=== PATIENT | male | born 1960 | race Caucasian/White ===

== ENCOUNTER 2019-10-14 16:41 | Observation (INO) | payer BC, OTHER ==
[2019-10-14] MEDS ORDERED: Sodium Chloride 0.9% 10 ML Syringe FLUSH PRN (16:42)
[2019-10-14] MEDS ORDERED: Sodium Chloride 0.9% 2.5 ML Syringe FLUSH PRN (16:42)
--- NOTE | 2019-10-14 17:03 | EDM.PDOC ---
ED HPI GENERAL MEDICAL PROBLEM - General Chief Complaint: Cardiovascular Problem Stated Complaint: CHEST PAIN Time Seen by Provider: 10/14/19 16:42 Source of Information: Reports: Patient History Limitations: Reports: No Limitations - History of Present Illness INITIAL COMMENTS - FREE TEXT/NARRATIVE: 59-year-old male with history of CAD, CABG, HLD, HTN, GERD, hiatal hernia pres ents with substernal chest pain. Symptoms started gradually 3 days ago, described as constant, sharp, tearing, radiates from the substernal region to the periumbilical region. Pain has gotten worse from 1/10 three days ago to a 4/10 today. He took 1 sublingual nitroglycerin with no relief. Associated with shortness of breath, generalized malaise. Denies F/Cough, N/V/sweats. He has not been compliant with his medications. He drove up here 3 days ago from [place], [place] on a [address] He smokes 1 PPD for almost 15 years. He does note about a 25 pound weight loss over the last 6 months. ROS: A 10-point review of systems, other than pertinent positives and negatives as stated per HPI, is otherwise negative PHYSICAL EXAM General: AOx4, GCS = 15, No distress HEENT: dry mucous membrane Neck: supple, no meningismus, no Kernig or Brudzinski Cardiac: S1S2 RRR Respiratory: CTAB, no crackles or rales, no wheezing Abdomen: Soft, nontender, no rebound or guarding, nondistended, no pulsatile mass. Back: nontender Musculoskeletal: NVI distally, no deformity Neuro: No focal deficits, CN 2 - 12 WNL. sternal Pain Score (Numeric/FACES): 5 - Related Data Allergies Allergy/AdvReac Type Severity Reaction Status Date / Time codeine Allergy Rash Verified 12/03/13 10:46 Home Meds: Home Meds Ticagrelor [Brilinta] 1 tab PO BID 12/03/13 [History] atorvaSTATin [Lipitor] 2 tab PO DAILY 12/03/13 [History] carvediloL [Coreg] 1 tab PO BID 12/03/13 [History] rOPINIRole [Requip] 8 mg PO DAILY 12/03/13 [History] traMADol [Ultram] 1 tab PO Q4H PRN 12/03/13 [History] Esomeprazole [NexIUM] 1 tab PO BID 06/18/14 [History] Varenicline Tartrate [Chantix] 1 mg PO DAILY 10/14/19 [History] ED ROS GENERAL - Review of Systems Review Of Systems: See Below (see dictation) ED EXAM, GENERAL - Physical Exam Exam: See Below (see dictation) EKG INTERPRETATION EKG Interpretation Comments: 91 Bpm, NSR, normal QRS interval, no STEMI. EKG and rhythm strip interpreted by me at 1651 Course - Vital Signs Last Recorded V/S: Last Vital Signs Temp 97 F 10/14/19 17:07 Pulse 94 10/14/19 17:07 Resp 16 10/14/19 17:07 BP 139/79 10/14/19 17:07 Pulse Ox 97 10/14/19 17:07 - Orders/Labs/Meds Orders: Active Orders 24 hr Category Date Time Status Cardiac Monitoring [RC] . DIRECTED Care 10/14/19 16:42 Active EKG Documentation Completion [RC] STAT Care 10/14/19 16:43 Active Pulse Oximetry [RC] ASDIRECTED Care 10/14/19 16:42 Active CORONAVIRUS COVID-19 PCR PHL Stat Lab 10/14/19 19:02 Ordered Sodium Chloride 0.9% [Saline Flush] Med 10/14/19 16:42 Active 10 ml FLUSH ASDIRECTED PRN Sodium Chloride 0.9% [Saline Flush] Med 10/14/19 16:42 Active 2.5 ml FLUSH ASDIRECTED PRN Saline Lock Insert [OM.PC] Stat Oth 10/14/19 16:42 Ordered Medication Orders Sodium Chloride (Saline Flush) 10 ml FLUSH ASDIRECTED PRN PRN Reason: Keep Vein Open Last Admin: 10/14/19 18:23 Dose: 10 ml Documented by: SILVINA Sodium Chloride (Saline Flush) 2.5 ml FLUSH ASDIRECTED PRN PRN Reason: Keep Vein Open Last Admin: 10/14/19 18:23 Dose: 2.5 ml Documented by: [email or web address] Labs: Laboratory Tests 10/14/19 10/14/19 10/14/19 Range/Units 16:55 16:55 16:55 WBC 13.94 H (4.0-11.0) K/uL RBC 4.94 (4.50-5.90) M/uL Hgb 14.1 (13.0-17.0) g/dL Hct 41.5 (38.0-50.0) % MCV 84.0 (80.0-98.0) fL MCH 28.5 (27.0-32.0) pg MCHC 34.0 (31.0-37.0) g/dL RDW Std Deviation 43.5 (28.0-62.0) fl RDW Coeff of Bennie 14 (11.0-15.0) % Plt Count 226 (150-400) K/uL MPV 9.60 (7.40-12.00) fL Neut % (Auto) 73.4 (48.0-80.0) % Lymph % (Auto) 12.6 L (16.0-40.0) % [place] % (Auto) 9.8 (0.0-15.0) % Eos % (Auto) 3.9 (0.0-7.0) % Baso % (Auto) 0.3 (0.0-1.5) % Neut # (Auto) 10.2 H (1.4-5.7) K/uL Lymph # (Auto) 1.8 (0.6-2.4) K/uL [place] # (Auto) 1.4 H (0.0-0.8) K/uL Eos # (Auto) 0.6 (0.0-0.7) K/uL Baso # (Auto) 0.0 (0.0-0.1) K/uL Nucleated RBC % 0.0 /100WBC Nucleated RBCs # 0 K/uL INR 1.09 Sodium 134 L (136-148) mmol/L Potassium 4.0 (3.5-5.1) mmol/L Chloride 98 (98-107) mmol/L Carbon Dioxide 26.0 (21.0-32.0) mmol/L BUN 9 (7.0-18.0) mg/dL Creatinine 1.1 (0.8-1.3) mg/dL Est Cr Clr Drug Dosing 69.95 mL/min Estimated GFR (MDRD) > 60.0 ml/min Glucose 104 (74-106) mg/dL Calcium 9.4 (8.5-10.1) mg/dL Total Bilirubin 0.6 (0.2-1.0) mg/dL AST 13 L (15-37) IU/L ALT 13 L (14-63) IU/L Alkaline Phosphatase 126 H (46-116) U/L Troponin I <0.050 (0.000-0.056) ng/mL Total Protein 8.1 (6.4-8.2) g/dL Albumin 3.8 (3.4-5.0) g/dL Globulin 4.3 H (2.6-4.0) g/dL Albumin/Globulin Ratio 0.9 (0.9-1.6) Lipase (73-393) U/L SARS-CoV-2 RNA (RT-PCR) (NEGATIVE) 10/14/19 10/14/19 Range/Units 16:55 17:34 WBC (4.0-11.0) K/uL RBC (4.50-5.90) M/uL Hgb (13.0-17.0) g/dL Hct (38.0-50.0) % MCV (80.0-98.0) fL MCH (27.0-32.0) pg MCHC (31.0-37.0) g/dL RDW Std Deviation (28.0-62.0) fl RDW Coeff of Bennie (11.0-15.0) % Plt Count (150-400) K/uL MPV (7.40-12.00) fL Neut % (Auto) (48.0-80.0) % Lymph % (Auto) (16.0-40.0) % [place] % (Auto) (0.0-15.0) % Eos % (Auto) (0.0-7.0) % Baso % (Auto) (0.0-1.5) % Neut # (Auto) (1.4-5.7) K/uL Lymph # (Auto) (0.6-2.4) K/uL [place] # (Auto) (0.0-0.8) K/uL Eos # (Auto) (0.0-0.7) K/uL Baso # (Auto) (0.0-0.1) K/uL Nucleated RBC % /100WBC Nucleated RBCs # K/uL INR Sodium (136-148) mmol/L Potassium (3.5-5.1) mmol/L Chloride (98-107) mmol/L Carbon Dioxide (21.0-32.0) mmol/L BUN (7.0-18.0) mg/dL Creatinine (0.8-1.3) mg/dL Est Cr Clr Drug Dosing mL/min Estimated GFR (MDRD) ml/min Glucose (74-106) mg/dL Calcium (8.5-10.1) mg/dL Total Bilirubin (0.2-1.0) mg/dL AST (15-37) IU/L ALT (14-63) IU/L Alkaline Phosphatase (46-116) U/L Troponin I (0.000-0.056) ng/mL Total Protein (6.4-8.2) g/dL Albumin (3.4-5.0) g/dL Globulin (2.6-4.0) g/dL Albumin/Globulin Ratio (0.9-1.6) Lipase 48 L (73-393) U/L SARS-CoV-2 RNA (RT-PCR) NEGATIVE (NEGATIVE) Meds: Medications Generic Name Dose Route Start Last Admin Trade Name Freq PRN Reason Stop Dose Admin Sodium Chloride 10 ml 10/14/19 16:42 10/14/19 18:23 Saline Flush FLUSH 10 ml ASDIRECTED PRN Administration Keep Vein Open Sodium Chloride 2.5 ml 10/14/19 16:42 10/14/19 18:23 Saline Flush FLUSH 2.5 ml ASDIRECTED PRN Administration Keep Vein Open Discontinued Medications Generic Name Dose Route Start Last Admin Trade Name Freq PRN Reason Stop Dose Admin Al Hydroxide/Mg Hydroxide 15 0 ml 10/14/19 17:47 10/14/19 18:22 ml/ Lidocaine HCl 5 ml PO 10/14/19 17:48 1 each ONETIME ONE Administration Pantoprazole Sodium 40 mg/ 20 mls @ 420 mls/hr 10/14/19 17:47 10/14/19 18:21 Sodium Chloride IVPUSH 10/14/19 17:49 420 mls/hr ONETIME ONE Administration Iopamidol 100 ml 10/14/19 18:08 10/14/19 18:09 Isovue Multipack-370 (76%) IVPUSH 10/14/19 18:09 100 ml ONETIME STA Administration - Re-Assessments/Exams Free Text/Narrative Re-Assessment/Exam: 10/14/19 18:[address] Mejia, who agrees to assume care at this point. The hospitalist's documentation supersedes all other documentation on this patient with regard to any conflicts or discrepancies from this point forward. Any emergency conditions have been treated to the ability of the ED prior to admission. Departure - Departure Time of Disposition: 18:39 Disposition: Refer to Observation Condition: Good Clinical Impression: Chest pain Referrals: PCP,None [Primary Care Provider] - Forms: ED Department Discharge Sepsis Event Note (ED) - Focused Exam Vital Signs: Vital Signs Temp Pulse Resp BP Pulse Ox 10/14/19 17:07 97 F 94 16 139/79 97 - My Orders Last 24 Hours: My Active Orders 10/14/19 16:42 Cardiac Monitoring [RC] . DIRECTED Pulse Oximetry [RC] ASDIRECTED Sodium Chloride 0.9% [Saline Flush] 10 ml FLUSH ASDIRECTED PRN Sodium Chloride 0.9% [Saline Flush] 2.5 ml FLUSH ASDIRECTED PRN Saline Lock Insert [OM.PC] Stat 10/14/19 16:43 EKG Documentation Completion [RC] STAT 10/14/19 19:02 CORONAVIRUS COVID-19 PCR PHL Stat - Assessment/Plan Last 24 Hours: My Active Orders 10/14/19 16:42 Cardiac Monitoring [RC] . DIRECTED Pulse Oximetry [RC] ASDIRECTED Sodium Chloride 0.9% [Saline Flush] 10 ml FLUSH ASDIRECTED PRN Sodium Chloride 0.9% [Saline Flush] 2.5 ml FLUSH ASDIRECTED PRN Saline Lock Insert [OM.PC] Stat 10/14/19 16:43 EKG Documentation Completion [RC] STAT 10/14/19 19:02 CORONAVIRUS COVID-19 PCR PHL Stat
[2019-10-14 17:36] LABS: BLOOD UREA NITROGEN,BUN 9 mg/dL (7.0-18.0); CHLORIDE,CL 98 mmol/L (98-107); GLUCOSE RANDOM 104 mg/dL (74-106); SODIUM,NA 134 mmol/L (136-148)
[2019-10-14] MEDS ORDERED: Alum Hydrox/Mag Hydrox/Simeth 15 ML, Lidocaine 2% 5 ML PO ONE ×2 (17:47)
[2019-10-14] MEDS ORDERED: Pantoprazole 40 MG in Sodium Chloride 0.9% 20 ML IVPUSH ONE (17:47)
[2019-10-14] MEDS ORDERED: Iopamidol 755 MG/ML 500 ML Multipack Bottle IVPUSH STA (18:08)
--- NOTE | 2019-10-14 18:10 | CT ---
CT chest, abdomen and pelvis Technique: Multiple axial sections were obtained from above the lung apices inferiorly through the lung bases. Intravenous contrast was utilized. Study performed as a CT angiogram protocol. Comparison: No prior chest or abdominal imaging. Findings: Thoracic aorta as well as abdominal aorta shows no aneurysm or dissection. Atherosclerotic change is noted. Slightly enlarged lymph nodes are seen within the left hilum and mediastinum. Lung mass is noted within the left upper chest showing irregular margins and measuring 4.0 cm in size. Lungs otherwise are clear. No axillary adenopathy is seen. Liver shows a small low density lesion anteriorly within the left lobe measuring 7 mm. This is too small to characterize as a cyst or solid nodule. No additional abnormalities are seen within the liver. Spleen appears within normal limits. Adrenal glands show no nodule. Pancreas shows no abnormality. Surgical clips are seen from prior cholecystectomy. Kidneys show symmetric contrast enhancement without hydronephrosis or mass. Superior mesenteric arteries and celiac axis appears patent. Both renal arteries are patent. Inferior mesenteric artery is patent. No retroperitoneal adenopathy or mesenteric abnormalities are seen. No pelvic mass or adenopathy is seen. No free fluid or inflammatory change is seen. Diverticuli are seen within the descending and sigmoid regions without diverticulitis. Appendix not visualized with certainty. Bone window settings were reviewed which shows mild degenerative change within the spine. No acute osseous finding is appreciated. Impression: 1. No evidence of thoracic or abdominal aortic aneurysm or dissection. Scattered atherosclerotic change is seen. 2. Mediastinal and left hilar adenopathy with left upper lung mass. Lung mass measures about 4.0 cm and findings are most likely due to lung cancer. 3. Small 7 mm abnormality within the anterior liver which is too small to characterize as cyst or solid lesion. 4. Other findings which are believed to be incidental as noted above. Diagnostic code #9 This report was dictated in MDT
--- NOTE | 2019-10-14 18:12 | CT ---
This study was dictated as part of the chest angiogram report
--- NOTE | 2019-10-14 18:13 | CT ---
This study was dictated as part of previous chest angiogram report.
[2019-10-14] MEDS ORDERED: Albuterol/Ipratropium 3.0-0.5 MG/3 ML Neb Soln NEB PRN (20:45)
[2019-10-14] MEDS ORDERED: atorvaSTATin 40 MG Tab PO SCH (21:00)
[2019-10-14] MEDS ORDERED: Acetaminophen 500 MG Tab PO PRN (21:26)
[2019-10-14] MEDS ORDERED: Morphine 2 MG/ML Syringe IVPUSH PRN (21:27)
[2019-10-14] MEDS: Aspirin 81 MG Tab.Chew PO SCH (21:33)
[2019-10-14] MEDS ORDERED: traMADol 50 MG Tab PO PRN (22:34)
--- NOTE | 2019-10-14 22:37 | PCM.HP.2 ---
H&P History of Present Illness - General Date of Service: 10/14/19 Admit Problem/Dx: Admission Diagnosis/Problem Admission Diagnosis/Problem Chest pain - History of Present Illness Initial Comments - Free Text/Narative: 59-year-old male with history of CAD, CABG, HLD, HTN, GERD, hiatal hernia presents with substernal chest pain and upper back pain. Symptoms started gradually 3 days ago, described as constant, sharp, tearing, radiates from the substernal region to the periumbilical region. Pain has gotten worse from 1/10 three days ago to a 4/10 today. He took 1 sublingual nitroglycerin with no relief. He has not been compliant with his medications. He drove up here 3 days ago from [place], [place] on a [address] He smokes 1 PPD for almost 15 years, has been trying to quit. He does note about a 25 pound weight loss over the last 6 months. In the ER EKG showed NSR, normal QRS interval, no STEMI, troponin was negative CT angiogram of chest and abdomen was obtained due to concern of dissection and PE, imaging was neagtive for dissection and PE but did show a irregular nodule in left lung with associated adenopathy, and 7mm lesion in liver. Given his extensive cardiac history, Patient was admitted fo ACS rule out and also to establish care in [place] for his follow up. Denied associated with shortness of breath, generalized malaise. Denies Fever/Cough, N/V/D, Diaphoresis. sternal Pain Score (Numeric/FACES): 7 - Related Data Allergies/Adverse Reactions: Allergies Allergy/AdvReac Type Severity Reaction Status Date / Time codeine Allergy Rash Verified 10/14/19 21:11 Home Medications: Home Meds Ticagrelor [Brilinta] 1 tab PO BID 12/03/13 [History] atorvaSTATin [Lipitor] 2 tab PO BID 12/03/13 [History] carvediloL [Coreg] 1 tab PO BID 12/03/13 [History] rOPINIRole [Requip] 8 mg PO DAILY 12/03/13 [History] traMADol [Ultram] 1 tab PO Q4H PRN 12/03/13 [History] Esomeprazole [NexIUM] 1 tab PO BID 06/18/14 [History] Varenicline Tartrate [Chantix] 1 mg PO DAILY 10/14/19 [History] Alum Hydrox/Mag Hydrox/Simeth [Mag-Al Plus] 30 ml PO Q6H PRN #15 cup 10/15/19 [Rx] Aspirin 81 mg PO DAILY tab.chew 10/15/19 [Rx] Past Medical History Cardiovascular History: Reports: [place], [place] - Infectious Disease History Infectious Disease History: Reports: Chicken Pox Social & Family History - Family History Family Medical History: Noncontributory - Tobacco Use Smoking Status *Q: Current Every Day Smoker Years of Tobacco use: 14 Packs/Tins Daily: 10 Used Tobacco, but Quit: No Second Hand Smoke Exposure: Yes - Caffeine Use Caffeine Use: Reports: Coffee, Soda - Recreational Drug Use Recreational Drug Use: No H&P Review of Systems - Review of Systems: Review Of Systems: See Below General: Reports: Weakness, Fatigue, Weight Loss. Denies: Fever, Chills, Malaise HEENT: Denies: Dysphasia, Ear Pain Pulmonary: Reports: Cough. Denies: Wheezing, Pleuritic Chest Pain, Sputum Cardiovascular: Denies: Palpitations, Dyspnea on Exertion, Orthopnea, Lightheadedness Gastrointestinal: Reports: Decreased Appetite. Denies: Abdominal Pain, Bloody Stool, Constipation, Diarrhea, Difficulty Swallowing, Distension Genitourinary: Denies: Burning, Pain, Urgency, Incontinence Musculoskeletal: Reports: Shoulder Pain, Back Pain Skin: Denies: Jaundice, Pallor, Diaphoresis, Dryness, Bruising, Pruritis Psychiatric: Denies: Mood Lability, Anxiety, Agitation, Cravings Neurological: Denies: Numbness, Paresthesia Exam - Exam Exam: See Below - Vital Signs Vital Signs: Last Vital Signs Temp 36.9 C 10/14/19 20:33 Pulse 89 10/14/19 20:33 Resp 18 10/14/19 20:33 BP 130/62 10/14/19 20:33 Pulse Ox 96 10/14/19 20:33 Weight: 89.3 kg - Exam General: Alert, Oriented Neck: Supple, Trachea Midline Lungs: Clear to Auscultation, Normal Respiratory Effort Cardiovascular: Regular Rate, Regular Rhythm, Normal S1, Normal S2 Back Exam: Normal Inspection, Full Range of Motion Extremities: Normal Inspection, Normal Range of Motion Skin: Warm Neurological: Cranial Nerves Intact Neuro Extensive - Mental Status: Alert, Oriented x3, Normal Mood/Affect - Patient Data Lab Results Last 24 hrs: Laboratory Results - last 24 hr 10/14/19 10/14/19 10/14/19 Range/Units 16:55 16:55 16:55 WBC 13.94 H (4.0-11.0) K/uL RBC 4.94 (4.50-5.90) M/uL Hgb 14.1 (13.0-17.0) g/dL Hct 41.5 (38.0-50.0) % MCV 84.0 (80.0-98.0) fL MCH 28.5 (27.0-32.0) pg MCHC 34.0 (31.0-37.0) g/dL RDW Std Deviation 43.5 (28.0-62.0) fl RDW Coeff of Bennie 14 (11.0-15.0) % Plt Count 226 (150-400) K/uL MPV 9.60 (7.40-12.00) fL Neut % (Auto) 73.4 (48.0-80.0) % Lymph % (Auto) 12.6 L (16.0-40.0) % [place] % (Auto) 9.8 (0.0-15.0) % Eos % (Auto) 3.9 (0.0-7.0) % Baso % (Auto) 0.3 (0.0-1.5) % Neut # (Auto) 10.2 H (1.4-5.7) K/uL Lymph # (Auto) 1.8 (0.6-2.4) K/uL [place] # (Auto) 1.4 H (0.0-0.8) K/uL Eos # (Auto) 0.6 (0.0-0.7) K/uL Baso # (Auto) 0.0 (0.0-0.1) K/uL Nucleated RBC % 0.0 /100WBC Nucleated RBCs # 0 K/uL INR 1.09 Sodium 134 L (136-148) mmol/L Potassium 4.0 (3.5-5.1) mmol/L Chloride 98 (98-107) mmol/L Carbon Dioxide 26.0 (21.0-32.0) mmol/L BUN 9 (7.0-18.0) mg/dL Creatinine 1.1 (0.8-1.3) mg/dL Est Cr Clr Drug Dosing 69.95 mL/min Estimated GFR (MDRD) > 60.0 ml/min Glucose 104 (74-106) mg/dL Calcium 9.4 (8.5-10.1) mg/dL Total Bilirubin 0.6 (0.2-1.0) mg/dL AST 13 L (15-37) IU/L ALT 13 L (14-63) IU/L Alkaline Phosphatase 126 H (46-116) U/L Troponin I <0.050 (0.000-0.056) ng/mL Total Protein 8.1 (6.4-8.2) g/dL Albumin 3.8 (3.4-5.0) g/dL Globulin 4.3 H (2.6-4.0) g/dL Albumin/Globulin Ratio 0.9 (0.9-1.6) Lipase (73-393) U/L SARS-CoV-2 RNA (RT-PCR) (NEGATIVE) 10/14/19 10/14/19 10/14/19 Range/Units 16:55 17:34 20:55 WBC (4.0-11.0) K/uL RBC (4.50-5.90) M/uL Hgb (13.0-17.0) g/dL Hct (38.0-50.0) % MCV (80.0-98.0) fL MCH (27.0-32.0) pg MCHC (31.0-37.0) g/dL RDW Std Deviation (28.0-62.0) fl RDW Coeff of Bennie (11.0-15.0) % Plt Count (150-400) K/uL MPV (7.40-12.00) fL Neut % (Auto) (48.0-80.0) % Lymph % (Auto) (16.0-40.0) % [place] % (Auto) (0.0-15.0) % Eos % (Auto) (0.0-7.0) % Baso % (Auto) (0.0-1.5) % Neut # (Auto) (1.4-5.7) K/uL Lymph # (Auto) (0.6-2.4) K/uL [place] # (Auto) (0.0-0.8) K/uL Eos # (Auto) (0.0-0.7) K/uL Baso # (Auto) (0.0-0.1) K/uL Nucleated RBC % /100WBC Nucleated RBCs # K/uL INR Sodium (136-148) mmol/L Potassium (3.5-5.1) mmol/L Chloride (98-107) mmol/L Carbon Dioxide (21.0-32.0) mmol/L BUN (7.0-18.0) mg/dL Creatinine (0.8-1.3) mg/dL Est Cr Clr Drug Dosing mL/min Estimated GFR (MDRD) ml/min Glucose (74-106) mg/dL Calcium (8.5-10.1) mg/dL Total Bilirubin (0.2-1.0) mg/dL AST (15-37) IU/L ALT (14-63) IU/L Alkaline Phosphatase (46-116) U/L Troponin I <0.050 (0.000-0.056) ng/mL Total Protein (6.4-8.2) g/dL Albumin (3.4-5.0) g/dL Globulin (2.6-4.0) g/dL Albumin/Globulin Ratio (0.9-1.6) Lipase 48 L (73-393) U/L SARS-CoV-2 RNA (RT-PCR) NEGATIVE (NEGATIVE) Result Diagrams: 10/15/19 05:35 10/15/19 05:35 Sepsis Event Note - Evaluation Sepsis Screening Result: No Definite Risk - Focused Exam Vital Signs: Vital Signs Temp Pulse Resp BP Pulse Ox 10/14/19 20:33 36.9 C 89 18 130/62 96 10/14/19 20:25 37.3 C 93 18 130/78 99 10/14/19 19:30 37.2 C 100 18 143/79 H 97 10/14/19 17:07 36.1 C 94 16 139/79 97 Date Exam was Performed: 10/15/19 Time Exam was Performed: 13:06 - Problem List (1) Lesion of left lung SNOMED Code(s): 047038343 ICD Code: R91.1 - SOLITARY PULMONARY NODULE Status: Acute (2) Chest pain SNOMED Code(s): 41634277 ICD Code: R07.9 - CHEST PAIN, UNSPECIFIED Status: Acute (3) Coronary arteriosclerosis, CAD SNOMED Code(s): 80867803 ICD Code: I25.10 - ATHSCL HEART DISEASE OF [place] CORONARY ARTERY W/O ANG PCTRS Status: Acute Onset Date: 12/03/13 Problem List Initiated/Reviewed/Updated: Yes Orders Last 24hrs: Active Orders 24 hr Category Date Time Status Admission Status [Patient Status] [ADT] Stat ADT 10/14/19 19:16 Active Ambulate [RC] ASDIRECTED Care 10/14/19 20:37 Active Antiembolic Devices [RC] PER UNIT ROUTINE Care 10/14/19 20:45 Active EKG Documentation Completion [RC] STAT Care 10/14/19 16:43 Active Oxygen Therapy Adult [Oxygen Therapy] [RC] ASDIRECTED Care 10/14/19 20:38 Active Pulse Oximetry [RC] ASDIRECTED Care 10/14/19 16:42 Active Pulse Oximetry [RC] PRN Care 10/14/19 20:38 Active RT Aerosol Therapy [RC] ASDIRECTED Care 10/14/19 20:45 Active Telemetry Monitoring [Cardiac Monitoring] [RC] . Care 10/14/19 19:20 Active DIRECTED Vital Signs [RC] Q4H Care 10/14/19 20:00 Active Heart Healthy Diet [DIET] Diet 10/15/19 Breakfast Active BASIC METABOLIC PANEL,BMP [CHEM] AM Lab 10/15/19 05:11 Ordered CBC WITH AUTO DIFF [HEME] AM Lab 10/15/19 05:11 Ordered MAGNESIUM [CHEM] AM Lab 10/15/19 05:11 Ordered PHOSPHORUS [CHEM] AM Lab 10/15/19 05:11 Ordered TROPONIN I [CHEM] Q3H Lab 10/14/19 23:38 Ordered Acetaminophen [Tylenol Extra Strength] Med 10/14/19 21:26 Active 500 mg PO Q6H PRN Albuterol/Ipratropium [DuoNeb 3.0-0.5 MG/3 ML] Med 10/14/19 20:45 Active 3 ml NEB Q4HRRT PRN Aspirin Med 10/14/19 20:45 Active 81 mg PO DAILY Esomeprazole [NexIUM] Med 10/15/19 09:00 Ordered 1 tab PO BID Morphine Sulfate [Morphine] Med 10/14/19 21:27 Active 1 mg IVPUSH Q6H PRN Sodium Chloride 0.9% [Saline Flush] Med 10/14/19 16:42 Active 10 ml FLUSH ASDIRECTED PRN Sodium Chloride 0.9% [Saline Flush] Med 10/14/19 16:42 Active 2.5 ml FLUSH ASDIRECTED PRN Ticagrelor Med 10/15/19 09:00 Ordered 1 tab PO BID atorvaSTATin [Lipitor] Med 10/14/19 21:00 Active 40 mg PO BEDTIME atorvaSTATin [Lipitor] Med 10/15/19 09:00 Ordered 80 mg PO BID carvediloL [Coreg] Med 10/15/19 09:00 Ordered 3.125 mg PO BID rOPINIRole [Requip] Med 10/15/19 09:00 Ordered 8 mg PO DAILY traMADol [Ultram] Med 10/14/19 22:34 Ordered 50 mg PO Q4H PRN SCD [Sequential Compression Device] [OM.PC] Routine Oth 10/14/19 20:45 Ordered Saline Lock Insert [OM.PC] Stat Oth 10/14/19 16:42 Ordered Medication Orders Acetaminophen (Tylenol Extra Strength) 500 mg PO Q6H PRN PRN Reason: Pain Albuterol/Ipratropium (Duoneb 3.0-0.5 Mg/3 Ml) 3 ml NEB Q4HRRT PRN PRN Reason: Shortness of Breath Aspirin (Aspirin) 81 mg PO DAILY [facility] Last Admin: 10/14/19 21:33 Dose: 81 mg Documented by: AYE Atorvastatin Calcium (Lipitor) 40 mg PO BEDTIME [facility] Last Admin: 10/14/19 21:34 Dose: 40 mg Documented by: AYE Atorvastatin Calcium (Lipitor) 80 mg PO BID [facility] Carvedilol (Coreg) 3.125 mg PO BID [facility] Morphine Sulfate (Morphine) 1 mg IVPUSH Q6H PRN PRN Reason: Pain (severe 7-10) Last Admin: 10/14/19 22:07 Dose: 1 mg Documented by: AYE Non-Formulary Medication (Esomeprazole [Nexium]) 1 tab PO BID [facility] Non-Formulary Medication (Ropinirole [Requip]) 8 mg PO DAILY [facility] Non-Formulary Medication (Ticagrelor) 1 tab PO BID [facility] Sodium Chloride (Saline Flush) 10 ml FLUSH ASDIRECTED PRN PRN Reason: Keep Vein Open Last Admin: 10/14/19 18:23 Dose: 10 ml Documented by: SILVINA Sodium Chloride (Saline Flush) 2.5 ml FLUSH ASDIRECTED PRN PRN Reason: Keep Vein Open Last Admin: 10/14/19 18:23 Dose: 2.5 ml Documented by: [id number] Tramadol HCl (Ultram) 50 mg PO Q4H PRN PRN Reason: Pain Assessment/Plan Comment:: 59 y/o M admitted for chest discomfort and incidental finding of possible lung Ca Admit to observation tele Trend 2 more sets of troponin Resume home meds including Plavix, ASA, statin Monitor and replete electrolytes as needed SCD for DVT ppx Cardiac diet Will make arrangements for outpatient fu at [facility] (patients request)
[2019-10-14] MEDS ORDERED: Aluminum Hydroxide/Magnesium Hydroxide/Simethicone Susp 30 ML Cup PO PRN (23:16)
[2019-10-15] MEDS ORDERED: rOPINIRole 1 MG Tab PO SCH (01:48)
[2019-10-15 06:28] LABS: BLOOD UREA NITROGEN,BUN 11 mg/dL (7.0-18.0); CARBON DIOXIDE,CO2 25.9 mmol/L (21.0-32.0); CHLORIDE,CL 97 mmol/L (98-107); GLUCOSE RANDOM 121 mg/dL (74-106); POTASSIUM,K 3.9 mmol/L (3.5-5.1); SODIUM,NA 132 mmol/L (136-148)
[2019-10-15] MEDS ORDERED: atorvaSTATin 40 MG Tab PO SCH ×2 (09:00→21:00)
[2019-10-15] MEDS ORDERED: Omeprazole 20 MG Cap.CR PO SCH (09:00)
[2019-10-15] MEDS ORDERED: Carvedilol 3.125 MG Tab PO SCH (09:00)
--- NOTE | 2019-10-15 09:20 | PCM.DCSUM1 ---
Discharge Summary - Hospital Course Free Text/Narrative:: 59-year-old male with history of CAD, CABG, HLD, HTN, GERD, hiatal hernia presents with substernal chest pain and upper back pain. Symptoms started gradually 3 days ago, described as constant, sharp, tearing, radiates from the substernal region to the periumbilical region. Pain has gotten worse from 1/10 three days ago to a 4/10 today. He took 1 sublingual nitroglycerin with no relief. He has not been compliant with his medications. He drove up here 3 days ago from [place], [place] on [address] He smokes 1 PPD for almost 15 years, has been trying to quit. He does note about a 25 pound weight loss over the last 6 months. In the ER EKG showed NSR, normal QRS interval, no STEMI, troponin was negative CT angiogram of chest and abdomen was obtained due to concern of dissection and PE, imaging was negative for dissection and PE but did show a irregular nodule in left lung with associated adenopathy, and 7mm lesion in liver. Patient was admitted for ACS rule out and also to establish care in [place] for his follow up. Denied associated with shortness of breath, generalized malaise. Denies Fever/Cough, N/V/D, Diaphoresis. During hospitalization, troponin were trended, which were negative 3 times, tele was unremarkable, ACS was ruled out. Epigastric pain resolved with Maalox, For left lung mass biopsy, patient was refereed to IR in [facility] upon patients request, and recommended to fu with pcp and oncology on outpatient basis. - Discharge Data Discharge Date: 10/15/19 Discharge Disposition: Home, Self-Care 01 Condition: Stable - Referral to Home Health Primary Care Physician: PCP None - Discharge Diagnosis/Problem(s) (1) Lesion of left lung SNOMED Code(s): 461936898 ICD Code: R91.1 - SOLITARY PULMONARY NODULE Status: Acute (2) Chest pain SNOMED Code(s): 31878758 ICD Code: R07.9 - CHEST PAIN, UNSPECIFIED Status: Acute (3) Coronary arteriosclerosis, CAD SNOMED Code(s): 26764447 ICD Code: I25.10 - ATHSCL HEART DISEASE OF [place] CORONARY ARTERY W/O ANG PCTRS Status: Acute Onset Date: 12/03/13 - Discharge Plan Prescriptions/Med Rec: Alum Hydrox/Mag Hydrox/Simeth [Mag-Al Plus] 30 ml PO Q6H PRN #15 cup PRN Reason: Heartburn Home Medications: Home Meds Ticagrelor [Brilinta] 1 tab PO BID 12/03/13 [History] atorvaSTATin [Lipitor] 2 tab PO BID 12/03/13 [History] carvediloL [Coreg] 1 tab PO BID 12/03/13 [History] rOPINIRole [Requip] 8 mg PO DAILY 12/03/13 [History] traMADol [Ultram] 1 tab PO Q4H PRN 12/03/13 [History] Esomeprazole [NexIUM] 1 tab PO BID 06/18/14 [History] Varenicline Tartrate [Chantix] 1 mg PO DAILY 10/14/19 [History] Alum Hydrox/Mag Hydrox/Simeth [Mag-Al Plus] 30 ml PO Q6H PRN #15 cup 10/15/19 [Rx] Aspirin 81 mg PO DAILY tab.chew 10/15/19 [Rx] Patient Handouts: Nonspecific Chest Pain, Adult, [place], Aluminum Hydroxide; Magnesium Hydroxide oral suspension Referrals: Nish Echevarria DO [Consulting Physician] - 11/18/19 8:30 am (Arrive 30 minutes early with a photo ID, insurance card, photo ID, list of all medications currently on, and mask. ) - Discharge Summary/Plan Comment DC Time >30 min.: Yes - Patient Data Vitals - Most Recent: Last Vital Signs Temp 36.4 C 10/15/19 08:00 Pulse 82 10/15/19 08:00 Resp 16 10/15/19 08:00 BP 121/74 10/15/19 08:00 Pulse Ox 96 10/15/19 08:00 Weight - Most Recent: 89.3 kg I&O - Last 24 hours: Intake & Output 10/14/19 10/15/19 10/15/19 22:59 06:59 14:59 Intake Total 700 Output Total 300 Balance 400 Lab Results - Last 24 hrs: Laboratory Results - last 24 hr 10/14/19 10/14/19 10/14/19 Range/Units 16:55 16:55 16:55 WBC 13.94 H (4.0-11.0) K/uL RBC 4.94 (4.50-5.90) M/uL Hgb 14.1 (13.0-17.0) g/dL Hct 41.5 (38.0-50.0) % MCV 84.0 (80.0-98.0) fL MCH 28.5 (27.0-32.0) pg MCHC 34.0 (31.0-37.0) g/dL RDW Std Deviation 43.5 (28.0-62.0) fl RDW Coeff of Bennie 14 (11.0-15.0) % Plt Count 226 (150-400) K/uL MPV 9.60 (7.40-12.00) fL Neut % (Auto) 73.4 (48.0-80.0) % Lymph % (Auto) 12.6 L (16.0-40.0) % Hughes % (Auto) 9.8 (0.0-15.0) % Eos % (Auto) 3.9 (0.0-7.0) % Baso % (Auto) 0.3 (0.0-1.5) % Neut # (Auto) 10.2 H (1.4-5.7) K/uL Lymph # (Auto) 1.8 (0.6-2.4) K/uL Hughes # (Auto) 1.4 H (0.0-0.8) K/uL Eos # (Auto) 0.6 (0.0-0.7) K/uL Baso # (Auto) 0.0 (0.0-0.1) K/uL Nucleated RBC % 0.0 /100WBC Nucleated RBCs # 0 K/uL INR 1.09 Sodium 134 L (136-148) mmol/L Potassium 4.0 (3.5-5.1) mmol/L Chloride 98 (98-107) mmol/L Carbon Dioxide 26.0 (21.0-32.0) mmol/L BUN 9 (7.0-18.0) mg/dL Creatinine 1.1 (0.8-1.3) mg/dL Est Cr Clr Drug Dosing 69.95 mL/min Estimated GFR (MDRD) > 60.0 ml/min Glucose 104 (74-106) mg/dL Calcium 9.4 (8.5-10.1) mg/dL Phosphorus (2.6-4.7) mg/dL Magnesium (1.8-2.4) mg/dL Total Bilirubin 0.6 (0.2-1.0) mg/dL AST 13 L (15-37) IU/L ALT 13 L (14-63) IU/L Alkaline Phosphatase 126 H (46-116) U/L Troponin I <0.050 (0.000-0.056) ng/mL Total Protein 8.1 (6.4-8.2) g/dL Albumin 3.8 (3.4-5.0) g/dL Globulin 4.3 H (2.6-4.0) g/dL Albumin/Globulin Ratio 0.9 (0.9-1.6) Lipase (73-393) U/L SARS-CoV-2 RNA (RT-PCR) (NEGATIVE) 10/14/19 10/14/19 10/14/19 Range/Units 16:55 17:34 20:55 WBC (4.0-11.0) K/uL RBC (4.50-5.90) M/uL Hgb (13.0-17.0) g/dL Hct (38.0-50.0) % MCV (80.0-98.0) fL MCH (27.0-32.0) pg MCHC (31.0-37.0) g/dL RDW Std Deviation (28.0-62.0) fl RDW Coeff of Bennie (11.0-15.0) % Plt Count (150-400) K/uL MPV (7.40-12.00) fL Neut % (Auto) (48.0-80.0) % Lymph % (Auto) (16.0-40.0) % Hughes % (Auto) (0.0-15.0) % Eos % (Auto) (0.0-7.0) % Baso % (Auto) (0.0-1.5) % Neut # (Auto) (1.4-5.7) K/uL Lymph # (Auto) (0.6-2.4) K/uL Hughes # (Auto) (0.0-0.8) K/uL Eos # (Auto) (0.0-0.7) K/uL Baso # (Auto) (0.0-0.1) K/uL Nucleated RBC % /100WBC Nucleated RBCs # K/uL INR Sodium (136-148) mmol/L Potassium (3.5-5.1) mmol/L Chloride (98-107) mmol/L Carbon Dioxide (21.0-32.0) mmol/L BUN (7.0-18.0) mg/dL Creatinine (0.8-1.3) mg/dL Est Cr Clr Drug Dosing mL/min Estimated GFR (MDRD) ml/min Glucose (74-106) mg/dL Calcium (8.5-10.1) mg/dL Phosphorus (2.6-4.7) mg/dL Magnesium (1.8-2.4) mg/dL Total Bilirubin (0.2-1.0) mg/dL AST (15-37) IU/L ALT (14-63) IU/L Alkaline Phosphatase (46-116) U/L Troponin I <0.050 (0.000-0.056) ng/mL Total Protein (6.4-8.2) g/dL Albumin (3.4-5.0) g/dL Globulin (2.6-4.0) g/dL Albumin/Globulin Ratio (0.9-1.6) Lipase 48 L (73-393) U/L SARS-CoV-2 RNA (RT-PCR) NEGATIVE (NEGATIVE) 10/14/19 10/15/19 10/15/19 Range/Units 23:35 05:35 05:35 WBC 11.19 H (4.0-11.0) K/uL RBC 4.80 (4.50-5.90) M/uL Hgb 13.6 (13.0-17.0) g/dL Hct 40.2 (38.0-50.0) % MCV 83.8 (80.0-98.0) fL MCH 28.3 (27.0-32.0) pg MCHC 33.8 (31.0-37.0) g/dL RDW Std Deviation 43.2 (28.0-62.0) fl RDW Coeff of Bennie 14 (11.0-15.0) % Plt Count 211 (150-400) K/uL MPV 9.70 (7.40-12.00) fL Neut % (Auto) 72.0 (48.0-80.0) % Lymph % (Auto) 11.7 L (16.0-40.0) % Hughes % (Auto) 11.2 (0.0-15.0) % Eos % (Auto) 4.7 (0.0-7.0) % Baso % (Auto) 0.4 (0.0-1.5) % Neut # (Auto) 8.1 H (1.4-5.7) K/uL Lymph # (Auto) 1.3 (0.6-2.4) K/uL Hughes # (Auto) 1.3 H (0.0-0.8) K/uL Eos # (Auto) 0.5 (0.0-0.7) K/uL Baso # (Auto) 0.0 (0.0-0.1) K/uL Nucleated RBC % 0.0 /100WBC Nucleated RBCs # 0 K/uL INR Sodium 132 L (136-148) mmol/L Potassium 3.9 (3.5-5.1) mmol/L Chloride 97 L (98-107) mmol/L Carbon Dioxide 25.9 (21.0-32.0) mmol/L BUN 11 (7.0-18.0) mg/dL Creatinine 1.0 (0.8-1.3) mg/dL Est Cr Clr Drug Dosing 76.95 mL/min Estimated GFR (MDRD) > 60.0 ml/min Glucose 121 H (74-106) mg/dL Calcium 9.1 (8.5-10.1) mg/dL Phosphorus 3.5 (2.6-4.7) mg/dL Magnesium 2.0 (1.8-2.4) mg/dL Total Bilirubin (0.2-1.0) mg/dL AST (15-37) IU/L ALT (14-63) IU/L Alkaline Phosphatase (46-116) U/L Troponin I < 0.050 (0.000-0.056) ng/mL Total Protein (6.4-8.2) g/dL Albumin (3.4-5.0) g/dL Globulin (2.6-4.0) g/dL Albumin/Globulin Ratio (0.9-1.6) Lipase (73-393) U/L SARS-CoV-2 RNA (RT-PCR) (NEGATIVE) Med Orders - Current: Current Medications Acetaminophen (Tylenol Extra Strength) 500 mg PO Q6H PRN PRN Reason: Pain Last Admin: 10/15/19 00:34 Dose: 500 mg Documented by: Al Hydroxide/Mg Hydroxide (Mag-Al Plus) 30 ml PO Q4H PRN PRN Reason: Heartburn Last Admin: 10/15/19 02:15 Dose: 30 ml Documented by: Albuterol/Ipratropium (Duoneb 3.0-0.5 Mg/3 Ml) 3 ml NEB Q4HRRT PRN PRN Reason: Shortness of Breath Aspirin (Aspirin) 81 mg PO DAILY [facility] Last Admin: 10/14/19 21:33 Dose: 81 mg Documented by: Atorvastatin Calcium (Lipitor) 80 mg PO BEDTIME MINDY Carvedilol (Coreg) 3.125 mg PO BID [facility] Morphine Sulfate (Morphine) 1 mg IVPUSH Q6H PRN PRN Reason: Pain (severe 7-10) Last Admin: 10/14/19 22:07 Dose: 1 mg Documented by: Omeprazole (Omeprazole) 20 mg PO BID MINDY Ticagrelor 90mg 1 each PO BID [facility] Ropinirole HCl (Requip) 8 mg PO BEDTIME [facility] Last Admin: 10/15/19 01:58 Dose: 8 mg Documented by: Sodium Chloride (Saline Flush) 10 ml FLUSH ASDIRECTED PRN PRN Reason: Keep Vein Open Last Admin: 10/14/19 18:23 Dose: 10 ml Documented by: Sodium Chloride (Saline Flush) 2.5 ml FLUSH ASDIRECTED PRN PRN Reason: Keep Vein Open Last Admin: 10/14/19 18:23 Dose: 2.5 ml Documented by: Tramadol HCl (Ultram) 50 mg PO Q4H PRN PRN Reason: Pain Last Admin: 10/14/19 23:26 Dose: 50 mg Documented by: Discontinued Medications Atorvastatin Calcium (Lipitor) 40 mg PO BEDTIME [facility] Last Admin: 10/14/19 21:34 Dose: 40 mg Documented by: Atorvastatin Calcium (Lipitor) 80 mg PO BID [facility] Al Hydroxide/Mg Hydroxide 15 (ml/ Lidocaine HCl 5 ml) 0 ml PO ONETIME ONE Stop: 10/14/19 17:48 Last Admin: 10/14/19 18:22 Dose: 1 each Documented by: Pantoprazole Sodium 40 mg/ (Sodium Chloride) 20 mls @ 420 mls/hr IVPUSH ONETIME ONE Stop: 10/14/19 17:49 Last Admin: 10/14/19 18:21 Dose: 420 mls/hr Documented by: Iopamidol (Isovue Multipack-370 (76%)) 100 ml IVPUSH ONETIME STA Stop: 10/14/19 18:09 Last Admin: 10/14/19 18:09 Dose: 100 ml Documented by:
[2019-10-15] MEDS: Aspirin 81 MG Tab.Chew PO SCH (10:24)
[2019-10-15 11:25] VITALS: BP 102/71; PULSE 79
== END 2019-10-15 12:40 | disposition home or self-care (01) ==
LOC: MW.ED 16:41 → MW.MS 19:16
PROVIDERS: ADMIT Student in an Organized Health Care Education/Training Program; ATTEND Student in an Organized Health Care Education/Training Program
DX: R91.1 Solitary pulmonary nodule (principal); R07.2 Precordial pain; I25.10 Atherosclerotic heart disease of native coronary artery without angina pectoris; I10 Essential (primary) hypertension; E78.5 Hyperlipidemia, unspecified; K21.9 Gastro-esophageal reflux disease without esophagitis; F17.210 Nicotine dependence, cigarettes, uncomplicated; K44.9 Diaphragmatic hernia without obstruction or gangrene; M54.9 Dorsalgia, unspecified; Z20.828 Contact with and (suspected) exposure to other viral communicable diseases; Z88.5 Allergy status to narcotic agent; Z95.1 Presence of aortocoronary bypass graft; Z79.899 Other long term (current) drug therapy; Z79.82 Long term (current) use of aspirin
CPT/HCPCS: 36415; 71275; 71275-26; 72191; 72191-26; 74175; 74175-26; 80048; 80053; 83690; 83735; 84100; 84484; 85025; 85610; 93005; 96374; 96375; 99285-25; A9270-GY; C9113; G0378; J2270; Q9967; U0002